=== PATIENT | female | born 2000 | race Hispanic/Latino ===

== ENCOUNTER → 2021-01-24 | Outpatient (CLI) | payer BC, OTHER ==
[~2021-01-24] MED LIST: ACNE MEDICATION; COVID-19 VACC, MRNA(MODERNA)/PF 100 MCG/0.5 ML VIAL IM ONE
== END ==
LOC: VACCPMC 14:00
DX: Z23 Encounter for immunization (principal); Z20.822 Contact with and (suspected) exposure to COVID-19
CPT/HCPCS: 0011A; 91301

== ENCOUNTER → 2021-02-20 | Outpatient (CLI) | payer OTHER | END | disposition home or self-care (01) | LOC: VACCPMC 08:30 | DX: Z23 Encounter for immunization (principal); Z20.822 Contact with and (suspected) exposure to COVID-19 | CPT/HCPCS: 91301 ==

== ENCOUNTER 2021-09-07 08:42 | Emergency (ER) | payer BC, OTHER ==
[~2021-09-07] VITALS: Ht 167.6 cm; Wt 52.2 kg
[~2021-09-07 08:42] MED LIST changes: -COVID-19 VACC, MRNA(MODERNA)/PF 100 MCG/0.5 ML VIAL IM ONE
[2021-09-07] MEDS ORDERED: LORATADINE-D 21 EACH PO (08:58)
[2021-09-07] MEDS ORDERED: FLONASE ALLERG9.9 ML INH (08:58)
== END 2021-09-07 09:24 | disposition home or self-care (01) ==
LOC: FSED 08:52
DX: R05.9 Cough, unspecified (principal); J30.9 Allergic rhinitis, unspecified
CPT/HCPCS: 71046; 99283